=== PATIENT | female | born 1935 | race Two or more races ===

== ENCOUNTER 2018-10-18 14:48 | Outpatient (CLI) | payer OTHER | END 2018-10-18 14:56 | disposition home or self-care (01) | LOC: RAD 14:48 | DX: M12.9 Arthropathy, unspecified (principal); M19.90 Unspecified osteoarthritis, unspecified site ==

== ENCOUNTER 2018-11-10 14:50 | Outpatient (CLI) | payer OTHER | END 2018-11-10 15:44 | disposition home or self-care (01) | LOC: TOM 14:50 | DX: R51 Headache (principal); R47.81 Slurred speech; G43.909 Migraine, unspecified, not intractable, without status migrainosus ==